=== PATIENT | female | born 1945 | race Caucasian/White ===

== ENCOUNTER 2023-12-22 17:25 | Emergency (ER) | payer MEDICARE, SELFPAY ==
[2023-12-22 17:39] VITALS: BP 185/96
--- NOTE | 2023-12-22 19:43 | ED.GENMED ---
History of Present Illness
General
Chief Complaint: Medication Reaction
Source: patient
Time Seen by Provider: 12/22/23 19:31
Travel History
Have you had any contact with someone who has COVID-19?: No
Do you have any symptoms of coronavirus? Fever > 100 degrees, chills, cough, shortness of breath, sore throat, loss of taste or smell, muscle aches, or headache?: No
History of Present Illness
History of Present Illness:
78-year-old female presents to the emergency room complaining of an itchy rash that began after taking NyQuil. Patient has had similar rash when she took Mucinex. Patient was taking the medication due to stuffy nose. No fever or chills. She
denies any difficulty breathing.
Phy Exam
Physical Exam
Physical Exam:
General: Awake, Alert, Oriented X3. No acute distress.
Vitals: unremarkable
Head: Atraumatic
Eyes: Pupils equal, EOMI
Throat: Airway intact, no exudates
Neck: Trachea midline
Lungs: Clear and equal b/l
Heart: Regular rate, no murmurs
Abd: Soft, Nontender, No pulsatile mass
Neuro: Nonfocal
Skin: Diffuse, urticarial rash
Extremities: pulses equal b/l, no edema
Course
Orders/Labs/Results
Orders:
Orders
12/22/23 19:41
Diphenhydramine [Benadryl] 25 mg PO NOW STA
Famotidine [Pepcid] 20 mg PO NOW STA
Prednisone [Deltasone] 50 mg PO NOW STA
Vital Signs
Initial and Last Documented VS:
Initial Vital Signs
Temp Pulse Resp BP Pulse Ox
98.7 F 80 18 185/96 99
12/22/23 17:39 12/22/23 17:39 12/22/23 17:39 12/22/23 17:39 12/22/23 17:39
Last Documented Vital Signs
Temp Pulse Resp BP Pulse Ox
98.7 F 65 18 171/78 97
12/22/23 17:39 12/22/23 20:47 12/22/23 17:39 12/22/23 20:47 12/22/23 20:47
MDM/Problems Addressed
Differential Diagnosis Includes:
Allergic reaction
MDM/Problems Addressed:
Patient treated with Benadryl and prednisone. Feels much better. Stable for discharge home.
*Critical Care Note
Total Time (30-74mins, 75-104mins- exclusive of procedures): Not Applicable
ED Attending Note
-
Portions of this chart may have been created with voice recognition software.� Occasional wrong word or��sound alike� substitutions may have occurred due to the inherent limitations of voice recognition software.
Discharge Plan
Departure
Patient Disposition: Home (Routine Discharge)
Date of Disposition: 12/22/23
Time of Disposition: 20:38
Patient with high blood pressure during this ER visit?: Yes
Condition: Good
Discharge Problem:
Allergic reaction
Instructions: Allergic Reaction ED, BLOOD PRESSURE
Prescriptions:
New
prednisone 20 mg tablet
40 mg PO DAILY Qty: 8 0RF
No Action
ascorbate calcium (vitamin C) [Lizbeth-C] 500 MG tablet
1,000 mg PO DAILY
magnesium oxide 250 MG tablet
250 mg PO DAILYPRN PRN (Reason: supplement)
cholecalciferol (vitamin D3) [Vitamin D3] 1,000 UNIT capsule
1,000 unit PO DAILY
multivit [id number] [Hair, Skin and Nails Advanced] 1 EACH tablet
3 tab PO DAILYPRN PRN (Reason: supplement)
lutein 40 MG capsule
40 mg PO DAILY
loratadine 10 MG tablet
10 mg PO DAILY PRN (Reason: allergies)
oxycodone 5 MG tablet
5 mg PO Q6HPRN PRN (Reason: moderate-severe pain) Qty: 30 0RF
Rx Instructions:
1 tab moderate pain or 2 if pain severe
Dx total joint replacement
ongoing therapy
ondansetron HCl 4 MG tablet
4 mg PO Q6HPRN PRN (Reason: nausea) Qty: 20 0RF
Rx Instructions:
Take 1/2 hour prior to Oxycodone if experiencing recurrent nausea
celecoxib 200 MG capsule
200 mg PO DAILY Qty: 30 0RF
Rx Instructions:
Take with food.
Do not take within 2 hours of Aspirin post-op.
famotidine 20 MG tablet
20 mg PO HS Qty: 30 0RF
mupirocin 1 APPLIC ointment
1 applic intranasal BID Qty: 1 0RF
Patient Comments:
pt states she started as ordered on 08/12/21 and did own dose this am at 0430
Lactobacillus acidophilus [Probiotic] 1 EACH capsule
1 cap PO DAILY
docusate sodium 100 MG capsule
100 mg PO BID Qty: 30 0RF
sennosides [senna] 8.6 MG capsule
8.6 mg PO BID Qty: 30 0RF
Aspirin 325 MG Tablet
325 mg PO Daily Qty: 28 0RF
Rx Instructions:
Take daily x4 weeks for blood clot prevention.
acetaminophen [Tylenol Extra Strength] 500 MG tablet
1,000 mg PO Q6H Qty: 0 0RF
Rx Instructions:
Do not exceed >4000 mg daily.
Referrals:
Leyda Friedman DO [Family Provider] -
Activity Restrictions/Additional Instructions:
You can take 25 to 50mg of Benadryl every 6 hours for itching. I have prescribed prednisone for the next 4 days.
Interventions
Interventions:
*Risk Screen - Suicide Last Done: 12/22/23 20:47
*General Assessment Last Done: 12/22/23 20:47
*Neglect/Abuse Screening Last Done: 12/22/23 20:47
*ED COVID-19 Vaccine History Last Done: 12/22/23 17:39
*Nursing Disposition Last Done: 12/22/23 20:47
ED-Skin Assessment Last Done: 12/22/23 20:37
ED- Pulmonary Assessment Last Done: 12/22/23 20:37
ED-EENT Assessment Last Done: 12/22/23 20:37
Discharge Date and Time
Discharge Date/Time: 12/22/23 20:49
[2023-12-22] MEDS: PEPCID 20 MG PO (20:13)
[2023-12-22] MEDS: DELTASONE 50 MG PO (20:13)
[2023-12-22] MEDS: BENADRYL 25 MG PO (20:13)
[2023-12-22 20:38] VITALS: BP 171/78
[2023-12-22 20:47] VITALS: BP 171/78
== END 2023-12-22 20:49 | disposition home or self-care (01) ==
LOC: EMR 17:25
PROVIDERS: EMERGENCY PHYSICIAN Emergency Medicine; FAMILY PHYSICIAN Family Medicine
DX: T78.40XA Allergy, unspecified, initial encounter (principal); X58.XXXA Exposure to other specified factors, initial encounter; R21 Rash and other nonspecific skin eruption
CPT/HCPCS: 99282

== ENCOUNTER → 2024-04-14 10:50 | Outpatient (REF) | payer MEDICARE, SELFPAY | LOC: HWRCS 10:50 | PROVIDERS: ATTENDING PHYSICIAN Family Medicine | DX: I49.1 Atrial premature depolarization (principal) | CPT/HCPCS: 93306 ==

== ENCOUNTER → 2024-05-18 10:28 | Outpatient (REF) | payer MEDICARE, SELFPAY | LOC: HWWDC 10:28 | PROVIDERS: ATTENDING PHYSICIAN Family Medicine | DX: Z12.31 Encounter for screening mammogram for malignant neoplasm of breast (principal); Z80.3 Family history of malignant neoplasm of breast | CPT/HCPCS: 77063; 77067 ==

== ENCOUNTER → 2024-11-30 12:47 | Outpatient (REF) | payer MEDICARE, SELFPAY | LOC: HWRAD 12:47 | PROVIDERS: ATTENDING PHYSICIAN Internal Medicine; FAMILY PHYSICIAN Family Medicine | DX: M81.0 Age-related osteoporosis without current pathological fracture (principal) | CPT/HCPCS: 77080 ==

== ENCOUNTER → 2025-07-12 10:34 | Outpatient (REF) | payer MEDICARE, SELFPAY | LOC: HWWDC 10:34 | PROVIDERS: ATTENDING PHYSICIAN Family Medicine | DX: Z12.31 Encounter for screening mammogram for malignant neoplasm of breast (principal); Z80.3 Family history of malignant neoplasm of breast | CPT/HCPCS: 77063; 77067 ==

== ENCOUNTER → 2025-09-02 11:14 | Outpatient (REF) | payer MEDICARE, SELFPAY | LOC: RAD 11:14 | PROVIDERS: ATTENDING PHYSICIAN Family Medicine | DX: Z87.39 Personal history of other diseases of the musculoskeletal system and connective tissue (principal) | CPT/HCPCS: 72081 ==

== ENCOUNTER → 2025-09-15 11:49 | Outpatient (REF) | payer MEDICARE, SELFPAY | LOC: RAD 11:49 | PROVIDERS: ATTENDING PHYSICIAN Internal Medicine; FAMILY PHYSICIAN Family Medicine | DX: M79.652 Pain in left thigh (principal) | CPT/HCPCS: 73552 ==